=== PATIENT | female | born 1960 | race African-American/Black ===

== ENCOUNTER 2017-10-18 20:05 | Emergency (ER) | payer MEDICAID ==
[~2017-10-18] VITALS: Ht 177.8 cm; Wt 123.0 kg
[2017-10-19 03:22] LABS: BASOPHILS % 0.4 % (0.0-2.0); EOSINOPHILS % 0.4 % (0.0-5.0); HEMATOCRIT. 39.9 % (36.0-48.0); MEAN CORPUSCULAR HEMOGLOBIN 29.8 pg (28.0-32.0); MEAN CORPUSCULAR VOLUME 91.7 fL (81.0-99.0); MEAN PLATELET VOLUME 8.2 fl (7.4-10.4); MONOCYTES % 6.2 % (2.0-8.0); PLATELET 173 x1000/uL (130-400); RED BLOOD CELL COUNT 4.35 mill/uL (4.2-5.4)
[2017-10-19 03:31] LABS: CARBON DIOXIDE 28 mEq/L (21-32); CHLORIDE 107 mEq/L (98-107); ETHANOL BLOOD < 10 mg/dL
[2017-10-19 03:33] LABS: HCG SCREEN NEGATIVE
[2017-10-19 07:31] VITALS: BP 112/68
[2017-10-19 07:36] LABS: CLARITY URINE CLEAR (CLEAR); COLOR URINE YELLOW (YELLOW); KETONES URINE NEGATIVE (NEGATIVE); LEUKOCYTE ESTERASE URINE NEGATIVE (NEGATIVE); NITRITE URINE NEGATIVE (NEGATIVE); OCCULT BLOOD URINE NEGATIVE (NEGATIVE); PROTEIN URINE NEGATIVE (NEGATIVE); SPECIFIC GRAVITY URINE 1.024 (1.005-1.030); UROBILINOGEN URINE 0.2 E.U./dL (0.2-1.0)
[2017-10-19] MEDS ORDERED: LORAZEPAM 2MG/ML CPJ IM ONE (07:45)
[2017-10-19] MEDS ORDERED: DIPHENHYDRAMINE 50MG/ML VIAL IM ONE (07:45)
[2017-10-19] MEDS ORDERED: HALOPERIDOL LACTATE 5MG/ML VIAL IM ONE (07:45)
[2017-10-19 08:23] LABS: *AMPHETAMINES SCREEN URINE NEGATIVE (NEGATIVE); *BARBITURATES SCREEN URINE NEGATIVE (NEGATIVE); *BENZODIAZEPINES SCREEN URINE NEGATIVE (NEGATIVE); *COCAINE SCREEN URINE PRESUMTIVE POSITIVE (NEGATIVE); CANNABINOID URINE SCREEN NEGATIVE (NEGATIVE); METHADONE URINE SCREEN NEGATIVE (NEGATIVE); OPIATES URINE SCREEN NEGATIVE (NEGATIVE); PHENCYCLIDINE URINE SCREEN PRESUMTIVE POSITIVE (NEGATIVE)
== END 2017-10-19 08:05 | disposition left against medical advice (07) ==
LOC: ER 20:05
DX: T18.9XXA Foreign body of alimentary tract, part unspecified, initial encounter (principal); F17.200 Nicotine dependence, unspecified, uncomplicated; F43.10 Post-traumatic stress disorder, unspecified; Z88.2 Allergy status to sulfonamides
CPT/HCPCS: 36415; 70360; 80053; 80305; 80307; 80329; 81003; 84703; 85025; 99285; G0482

== ENCOUNTER 2024-07-06 15:17 | Emergency (ER) | payer MEDICAID ==
[~2024-07-06] VITALS: Ht 170.2 cm; Wt 70.0 kg
[2024-07-06 15:41] VITALS: O2SAT 96
[2024-07-06] MEDS ORDERED: HYDROCODONE/ACETAMINOPHEN 5/325MG TABLET PO ONE (19:45)
[2024-07-06] MEDS ORDERED: HYDR-4001 MT (22:04)
[2024-07-06] MEDS: HYDROCODONE/ACETAMINOPHEN 5/325MG TABLET PO ONE (22:14)
[2024-07-06 22:15] VITALS: BP 138/84; PULSE 89; RESP 16; TEMP 36.83628; O2SAT 97
== END 2024-07-06 22:16 | disposition home or self-care (01) ==
LOC: ER 15:17
DX: M54.2 Cervicalgia (principal); I10 Essential (primary) hypertension; Z88.2 Allergy status to sulfonamides
CPT/HCPCS: 72131; 73030; 73110; 99284

== ENCOUNTER 2025-06-18 12:57 | Emergency (ER) | payer MEDICAID ==
[~2025-06-18] VITALS: Ht 180.3 cm; Wt 91.0 kg
[~2025-06-18 12:57] MED LIST: HYDR-4001 MT
[2025-06-18 13:01] VITALS: BP 116/78; PULSE 90; RESP 18; TEMP 36.3; O2SAT 96
[2025-06-18] MEDS ORDERED: IBUP-1455 MT (15:36)
[2025-06-18] MEDS ORDERED: METH-653 MT (15:36)
[2025-06-18] MEDS ORDERED: LIDO700A30 TP (15:36)
[2025-06-18] MEDS: METHOCARBAMOL 500MG TABLET PO ONE (15:53)
[2025-06-18] MEDS: KETOROLAC 30MG/ML VIAL IM ONE (15:53)
== END 2025-06-18 16:19 | disposition home or self-care (01) ==
LOC: ER 12:57
DX: S13.4XXA Sprain of ligaments of cervical spine, initial encounter (principal); I10 Essential (primary) hypertension; J45.909 Unspecified asthma, uncomplicated; M54.12 Radiculopathy, cervical region; Z88.2 Allergy status to sulfonamides; X58.XXXA Exposure to other specified factors, initial encounter; Y93.89 Activity, other specified; Y92.89 Other specified places as the place of occurrence of the external cause; Y99.8 Other external cause status
CPT/HCPCS: 99283; 96372; J1885